=== PATIENT | male | born 1955 | race African-American/Black ===

== ENCOUNTER 2022-02-10 00:16 | Emergency (ER) | payer MEDICAID ==
[~2022-02-10] VITALS: Ht 185.4 cm; Wt 115.0 kg
[2022-02-10 00:22] VITALS: BP 117/79
== END 2022-02-10 02:05 | disposition left against medical advice (07) ==
LOC: ER 00:16
DX: Z53.21 Procedure and treatment not carried out due to patient leaving prior to being seen by health care provider (principal)